=== PATIENT | male | born 1935 | race Caucasian/White ===

== ENCOUNTER 2017-12-10 12:41 | Outpatient (CLI) | payer MEDICARE, OTHER ==
[~2017-12-10 12:41] MED LIST: Iopamidol 370 76% 100 ML VIAL ONE
--- NOTE | 2017-12-10 15:41 | CT ---
CT ANGIOGRAM ABDOMEN AND PELVIS WITH CONTRAST: HISTORY: I71.4, abdominal aortic aneurysm, without rupture. COMPARISON: CT angiogram 05/22/16. TECHNIQUE: CT angiogram abdomen and pelvis performed after the intravenous administration of contrast. Three-D rendering provided. There is chronic thickening in the right lung base with the interstitium, mildly worsened from last year. There is also some fibrosis along the lingula. No pericardial effusion. No dilated loops of large or small bowel. The gallbladder, liver, and spleen are unremarkable. Panc reas is unremarkable. A small splenule is present. Multiple renal hypodensities are present, similar. Mild thickening of the adrenal glands, similar. No adenopathy. There is increased fat within the posterior perirenal space bilaterally, unchanged fo r multiple years. No adenopathy. No fracture of the spine. Extensive disk arthropathy throughout the lumbar spine. There is some mild narrowing of the celiac trunk and superior mesenteric arteries, less than 50%, due to atherosclerotic plaque. There is also mild narrowing of the left and right renal arterial ostia due to atherosclerotic plaque. The arc of [place] is patent. There has been placement of a new aortobiiliac stent graft since the comparison examination. The siz e of the thrombosed external graft measures up to 5.2 x 5.2 cm for a craniocaudad length of 6.4 cm. This has increased from the comparison exam. The aortobiiliac graft excludes the thrombosed external graft. There is no evidence of endoleak, alt amisha a noncontrast examination was not performed. There is focal narrowing of the internal iliac ar teries bilaterally with a high-grade stenosis of the proximal left internal iliac artery. The limbs of the stent graft are patent. The femoral arteries are patent where visualized. IMPRESSION: 1. Mild size increase of the excluded aortic aneurysm measuring up to 5.2 cm. 2. Patent new aortoiliac stent graft. 3. 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 3. Similar appearance to the numerous renal hypodensities. POS: [facility]
== END 2017-12-10 12:42 | disposition home or self-care (01) ==
LOC: CT 12:41
PROVIDERS: ATTEND Thoracic Surgery (Cardiothoracic Vascular Surgery)
DX: I71.4 Abdominal aortic aneurysm, without rupture (principal); I77.1 Stricture of artery; N28.89 Other specified disorders of kidney and ureter; Z95.820 Peripheral vascular angioplasty status with implants and grafts
CPT/HCPCS: 36415; 74174; 82565